=== PATIENT | male | born 1960 | race Caucasian/White ===

== ENCOUNTER → 2019-04-11 07:41 | Outpatient (CLI) | payer MEDICARE, SELFPAY ==
--- NOTE | 2019-04-11 07:47 | CT_ITS ---
HISTORY: LUNG SCREEN, 30+ YR SMOKER X 1 PPD, COPD EXAMINATION: CT Low Dose CT Chest for Lung Cancer Screening TECHNIQUE: Helically acquired images were obtained of the chest. A radiation dose optimization technique was used for this scan. IV Contrast dosage and agent: None. COMPARISON: None FINDINGS: UPPER ABDOMEN: No acute pathology. HEART AND PERICARDIUM: Heart size is normal. There is no pericardial effusion. Coronary artery atherosclerosis. VESSELS: Thoracic aorta is not dilated. MEDIASTINUM AND KELECHI: There is no mediastinal or hilar adenopathy. Esophagus is unremarkable. There is no hiatal hernia. OTHER SOFT TISSUES: Included thyroid gland is unremarkable. There is no axillary, supraclavicular or lower cervical adenopathy. LUNGS AND LARGE AIRWAYS: No concerning nodules or masses. No pneumonia or edema. Mild bilateral bronchial wall thickening. Mild emphysema. No pneumothorax. Small amount of secretions in the trachea. PLEURA: Unremarkable. No pleural effusion or thickening. BONES: No suspicious lytic or blastic abnormality observed. CT/Low Dose CT Lung Screening IMPRESSION: Lung RADS 1. Continue annual screening. Mild emphysema and bronchitis. Small amount of secretions in the trachea. Coronary artery atherosclerosis. Individualized dose optimization techniques were used for this CT. at 0040 Reported and signed by: Horacio Rea MD Electronically Signed: Horacio Rea, at 0:39 EDT Tel , Service support ,
== END ==
PROVIDERS: Family Provider Family Medicine; PCP Family Medicine; Referring Provider Internal Medicine Pulmonary Disease; Visit Provider Internal Medicine Pulmonary Disease
DX: Z87.891 Personal history of nicotine dependence (principal)
CPT/HCPCS: G0297